=== PATIENT | male | born 1960 | race Caucasian/White ===

== ENCOUNTER 2018-04-23 12:14 | Emergency (ER) | payer MEDICAID, MEDICARE ==
--- NOTE | 2018-04-23 16:00 | RAD ---
HISTORY: injury, left arm pain and swelling COMPARISONS: July 07, 2015 VIEWS: 2, Frontal and lateral views of the left forearm. Evaluation is limited by positioning FINDINGS: BONE DENSITY: There is diffuse osteopenia. BONES: There is remote posttraumatic deformity of the distal fibula. The patient is status post internal fixation of the distal radius. There is no hardware failure or osteolysis. There is, with fracture of the distal humeral metaphysis is not well visualized on the current examination. JOINTS: There is no arthropathy. ALIGNMENT: There is no dislocation. SOFT TISSUES: Unremarkable. OTHER FINDINGS: None. IMPRESSION: 1. COMMINUTED FRACTURE OF THE DISTAL HUMERAL METAPHYSIS NOT WELL VISUALIZED ON THE CURRENT EXAMINATION. 2. OSTEOPENIA. 3. REMOTE POSTTRAUMATIC AND POST SURGICAL CHANGE OF THE WRIST
--- NOTE | 2018-04-23 16:01 | RAD ---
HISTORY: injury, left-sided pain and swelling COMPARISONS: July 22, 2015 VIEWS: 3, Frontal, lateral, and oblique views of the left wrist FINDINGS: BONE DENSITY: There is diffuse osteopenia. BONES: The patient is status post internal fixation of the distal radius. There is remote post right deformity of the distal ulna and first metacarpal. JOINTS: There is osteoarthritis of the radiocarpal articulation, first CMC, first MCP joints. ALIGNMENT: There is no dislocation. SOFT TISSUES: Unremarkable. OTHER FINDINGS: None. IMPRESSION: 1. OSTEOARTHRITIS. 2. OSTEOPENIA. 3. STATUS POST ORIF OF THE DISTAL RADIUS. 4. REMOTE POST RIGHT CHANGES. 5. NO ACUTE OSSEOUS INJURY. THE DEGREE OF OSTEOPENIA MAY MAKE A NONDISPLACED FRACTURE RADIOGRAPHICALLY OCCULT. IF SYMPTOMS PERSIST, RECOMMEND REPEAT IMAGING.
--- NOTE | 2018-04-23 16:02 | RAD ---
INDICATION: Left humerus injury. TECHNIQUE: 2 views of the left humerus were obtained. FINDINGS: The bones appear osteopenic. There is a transverse comminuted fracture of the distal humeral metaphysis through the supracondylar region. The fracture fragments are displaced and demonstrates anterior angulation relative to the proximal fragment. There is diffuse soft tissue swelling present. IMPRESSION: COMMINUTED DISPLACED ANGULATED SUPRACONDYLAR FRACTURE. X-RAYS OF THE ELBOW MAY BE HELPFUL IN FURTHER DEFINITION.
--- NOTE | 2018-04-23 16:17 | ED ---
Upper Extremity Pain - HPI Summary HPI Summary: This is nawaf Randall documenting for attending Darren Welsh MD. This patient is a 57 year old M presenting to ED with a chief complaint of L arm pain and swelling s/p fall on the morning of 04/19/18. Last night he noticed the increased swelling and decided to come to the ED. He has paralysis of that arm from a previous stroke and is currently concerned that it may be broken. The patient rates the pain 4-5/10 in severity. Symptoms aggravated by movement. Symptoms alleviated by nothing. Patient reports the pain is in his elbow and forearm. PSHx wrist fracture. - History of Current Complaint Chief Complaint: EDExtremityUpper Stated Complaint: LT ARM INJURY Time Seen by Provider: 04/23/18 15:36 Hx Obtained From: Patient Mechanism Of Injury: Fall From A Standing Position Onset/Duration: Started Days Ago - on 04/19/18, Still Present Timing: Constant, Lasting Days - on 04/19/18 Severity Initially: Mild - 2/10 Severity Currently: Mild - 2/10 Pain Location: Arm - left, Elbow - left, Forearm - left Aggravating Factor(s): Movement Alleviating Factor(s): Nothing - Allergies/Home Medications Allergies/Adverse Reactions: Allergies Allergy/AdvReac Type Severity Reaction Status Date / Time No Known Allergies Allergy Verified 04/23/18 12:33 PMH/Surg Hx/FS Hx/Imm Hx Cardiovascular History: Reports: Hx Hypertension - ON MEDS Denies: Other Cardiovascular Problems/Disorders Respiratory History: Denies: Other Respiratory Problems/Disorders GI History: Denies: Other GI Disorders Musculoskeletal History: Denies: Other Musculoskeletal History Sensory History: Reports: Hx Contacts or Glasses - GLASSES Denies: Hx Hearing Aid Opthamlomology History: Reports: Hx Contacts or Glasses - GLASSES Neurological History: Reports: Hx Headaches Psychiatric History: Reports: Hx Anxiety, 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 [place] [facility] [place] Anesthesia Reactions: No Infectious Disease History: No Infectious Disease History: Denies: Traveled Outside the [place] in Last 30 Days - Family History Known Family History: Positive: Hypertension - Social History Alcohol Use: Rare Substance Use Type: Reports: None Substance Use Comment - Amount & Last Used: HX OF ETOH ABUSE, SOBER NOW Smoking Status (MU): Former Smoker Amount Used/How Often: PACK A DAY Have You Smoked in the Last Year: No Review of Systems Negative: Fever Positive: Other - L arm pain and swelling, pain mostly on L elbow and L forearm ; has paralysis of L arm due to previous stroke All Other Systems Reviewed And Are Negative: Yes Physical Exam - Summary Physical Exam Summary: VITAL SIGNS: Reviewed. GENERAL: Patient is a well-developed and nourished MALE who is lying comfortable in the stretcher. Patient is not in any acute respiratory distress. HEAD AND FACE: No signs of trauma. No ecchymosis, hematomas or skull depressions. No sinus tenderness. EYES: PERRLA, EOMI x 2, No injected conjunctiva, no nystagmus. EARS: Hearing grossly intact. Ear canals and tympanic membranes are within normal limits. MOUTH: Oropharynx within normal limits. NECK: Supple, trachea is midline, no adenopathy, no JVD, no carotid bruit, no c- spine tenderness, neck with full ROM. CHEST: Symmetric, no tenderness at palpation LUNGS: Clear to auscultation bilaterally. No wheezing or crackles. CVS: Regular rate and rhythm, S1 and S2 present, no murmurs or gallops appreciated. ABDOMEN: Soft, non-tender. No signs of distention. No rebound no guarding, and no masses palpated. Bowel sounds are normal. EXTREMITIES: no edema, no cyanosis or clubbing. L upper extremity swelling. Decreased sensation in the L arm but chronic because of his past stroke. Decreased movement of the L arm secondary to stroke. Good capillary refill. NEURO: Alert and oriented x 3. No acute neurological deficits. Speech is normal and follows commands. SKIN: Dry and warm Triage Information Reviewed: Yes Vital Signs On Initial Exam: Initial Vitals Temp Pulse Resp BP Pulse Ox 97.9 F 88 18 165/100 95 04/23/18 12:20 04/23/18 12:20 04/23/18 12:20 04/23/18 12:20 04/23/18 12:20 Vital Signs Reviewed: Yes Diagnostics - Vital Signs Vital Signs Temp Pulse Resp BP Pulse Ox 04/23/18 14:03 98.1 F 82 18 166/100 100 04/23/18 12:20 97.9 F 88 18 165/100 95 - Laboratory Lab Statement: Any lab studies that have been ordered have been reviewed, and results considered in the medical decision making process. - Radiology Humerus XR Radiology Interpretation Completed By: Radiologist - COMMINUTED DISPLACED ANGULATED SUPRACONDYLAR FRACTURE. X-RAYS OF THE ELBOW MAY BE HELPFUL IN FURTHER DEFINITION. ED physician has reviewed this radiology report. L Wrist XR Radiology Interpretation Completed By: Radiologist - 1. OSTEOARTHRITIS. 2. OSTEOPENIA. 3. STATUS POST ORIF OF THE DISTAL RADIUS. 4. REMOTE POST RIGHT CHANGES. 5. NO ACUTE OSSEOUS INJURY. THE DEGREE OF OSTEOPENIA MAY MAKE A NONDISPLACED FRACTURE RADIOGRAPHICALLY OCCULT. IF SYMPTOMS PERSIST, RECOMMEND REPEAT IMAGING. ED physician has reviewed this radiology report. L forearm XR Radiology Interpretation Completed By: Radiologist - 1. COMMINUTED FRACTURE OF THE DISTAL HUMERAL METAPHYSIS NOT WELL VISUALIZED ON THE CURRENT EXAMINATION. 2. OSTEOPENIA. 3. REMOTE POSTTRAUMATIC AND POST SURGICAL CHANGE OF THE WRIST. ED physician has reviewed this radiology report. L elbow XR Radiology Interpretation Completed By: Radiologist - COMMINUTED, DISPLACED, ANGULATED SUPRACONDYLAR FRACTURE. ED physician has reviewed this radiology report. Re-Evaluation - Re-Evaluation First Eval Re-Evaluation Time: 17:37 Comment: Placed a splint on the patient. Discussed discharge plan and follow up instructions. Course/Dx - Course Assessment/Plan: Patient is a 49-year-old male with past medical history significant for CVA with left-sided weakness, hypertension and depression. He presents today to the emergency department with a chief complaint of having left elbow pain and swelling. He reports that last he accidentally tripped and fell and since then the patient is having pain. X-ray of the left forearm impression: Comminuted fracture of the distal humerus. Osteopenia, remote pulse of traumatic and postsurgical change of the wrist. X-ray of the left wrist impression: Question arthritis, osteopenia, status post ORIF of the distal radius. No acute osseous injury. Humerus x-ray impression: Comminuted displaced angulated supracondylar fracture. X-ray of the left elbow impression : Comminuted, displaced, angulated supracondylar fracture. I discussed the findings and test results with Dr. Norman from orthopedics and she recommends for the patient to be placed in a long posterior splint and discharged home with a follow-up with her office tomorrow. I discussed the findings test results and plan with the patient and they agree. The patient has no further questions and no other concerns. Patient as he remembered the stable alert and oriented 3. - Diagnoses Differential Diagnosis/HQI/PQRI: Positive: Other - SUPRACONDYLAR FRACTURE Provider Diagnoses: Supracondylar fracture of humerus - Physician Notifications Discussed Care of Patient With: Shavon Norman Time Discussed With Above Provider: 17:32 Instructed by Provider To: Other - Consulted Dr. Norman who says to put a long splint on the patient, discharge him, and give him instructions to follow up with her in the office tomorrow. Discharge - Sign-Out/Discharge Documenting (check all that apply): Patient Departure - Discharge Plan Condition: Stable Disposition: HOME Prescriptions: HYDROcodone/ACETAMIN 5-325 MG* [Two Dot 5-325 TAB*] 1 tab PO Q6H PRN #10 tab MDD 4 PRN Reason: Pain Patient Education Materials: Splint Care (ED) Referrals: Shavon Norman MD [Medical Doctor] - (Follow up with Dr. Norman tomorrow.) Additional Instructions: RETURN TO ED FOR ANY WORSENING OR NEW SYMPTOMS. FOLLOW UP WITH YOUR PRIMARY CARE PROVIDER WITHIN ONE WEEK FOR HIGH BLOOD PRESSURE NOTED TODAY.
--- NOTE | 2018-04-23 16:56 | RAD ---
INDICATION: Left elbow pain. TECHNIQUE: 5 views of the left elbow were obtained. FINDINGS: There is diffuse soft tissue swelling. The bones appear osteopenic. There is a comminuted impacted fracture of the distal humeral metaphysis in the supracondylar region. There is anterior angulation of the distal fragments relative to the proximal fragment. IMPRESSION: COMMINUTED, DISPLACED, ANGULATED SUPRACONDYLAR FRACTURE.
[2018-04-23] MEDS ORDERED: HYDROcodone/ACETAMIN 5-325 MG* 1 TAB PO ONE (17:50)
[2018-04-23 18:01] VITALS: BP 165/119
== END 2018-04-23 18:00 | disposition home or self-care (01) ==
LOC: ED 12:14
DX: S42.422A Displaced comminuted supracondylar fracture without intercondylar fracture of left humerus, initial encounter for closed fracture (principal); I69.354 Hemiplegia and hemiparesis following cerebral infarction affecting left non-dominant side; W19.XXXA Unspecified fall, initial encounter; Y92.9 Unspecified place or not applicable; I10 Essential (primary) hypertension; Z87.891 Personal history of nicotine dependence; M19.032 Primary osteoarthritis, left wrist; M85.832 Other specified disorders of bone density and structure, left forearm
CPT/HCPCS: 29125; 99282

== ENCOUNTER 2019-09-30 09:49 | Emergency (ER) | payer SELFPAY ==
--- NOTE | 2019-09-30 09:55 | ED ---
Complex/Multi-Sys Presentation - HPI Summary HPI Summary: Patient is a 59 y/o M presenting to the ED via EMS for a chief complaint of left arm pain after a fall on 09/30/19. Per EMS, patient was at his place of employment, [employer], when he fell on his left arm and the back of his head. After the fall, patient had lightheadedness. On arrival to [facility], patient reported neck stiffness and headache. He describes his headache as a burning sensation in the back of the head. EMS placed a brace on the left forearm as a left arm fracture was suspected. Patient has a PMHx of CVA 10 years ago with residual left-sided weakness that the patient believes was the reason for the fall. Since the CVA, the patient has had decreased ROM of the left arm. Patient denies having a loss of consciousness after the fall. PMHx is also significant for back fracture several years ago. He denies taking any medications or using tobacco, but admits occasional alcohol and marijuana use. Medications reviewed. Allergies noted. - History Of Current Complaint Hx Obtained From: Patient, EMS Onset/Duration: Sudden Onset, Still Present Timing: Constant Severity Currently: Moderate Severity Initially: Moderate Location: Pain At: - Left arm Character: Typical Headache - Burning sensation Associated Signs And Symptoms: Positive: Weakness - Residual left-sided, Headache. Negative: Syncope - Allergies/Home Medications Allergies/Adverse Reactions: Allergies Allergy/AdvReac Type Severity Reaction Status Date / Time No Known Allergies Allergy Verified 09/30/19 10:00 Home Medications: Home Medications Aspirin EC TAB* [Ecotrin EC Low Dose 81 MG*] 81 mg PO DAILY 09/30/19 [History Confirmed 09/30/19] Milk Thistle 150 mg PO DAILY 09/30/19 [History Confirmed 09/30/19] Naproxen Sodium [Aleve] 220 mg PO DAILY 09/30/19 [History Confirmed 09/30/19] diphenhydrAMINE HCl [Allergy Medication] 25 mg PO DAILY PRN 09/30/19 [History Confirmed 09/30/19] PMH/Surg Hx/FS Hx/Imm Hx Previously Healthy: Yes Endocrine/Hematology History: Denies: Hx Diabetes Cardiovascular History: Reports: Hx Hypertension - ON MEDS Denies: Hx Hypercholesterolemia, Other Cardiovascular Problems/Disorders Respiratory History: Denies: Other Respiratory Problems/Disorders GI History: Denies: Other GI Disorders Musculoskeletal History: Denies: Other Musculoskeletal History Sensory History: Reports: Hx Contacts or Glasses - GLASSES Denies: Hx Legally Blind, Hx Deafness, Hx Hearing Aid Opthamlomology History: Reports: Hx Contacts or Glasses - GLASSES Denies: Hx Legally Blind EENT History: Denies: Hx Deafness Neurological History: Reports: Hx CVA, Hx Headaches Psychiatric History: Reports: Hx Anxiety, 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 TESTICULAR CYST, 2009, [facility] Hx Anesthesia Reactions: No Infectious Disease History: No - Family History Known Family History: Positive: Hypertension - Social History Occupation: Employed Full-time Lives: With Family Alcohol Use: Rare Hx Substance Use: No Substance Use Type: Reports: None Substance Use Comment - Amount & Last Used: HX OF ETOH ABUSE, SOBER NOW Hx Tobacco Use: Yes Smoking Status (MU): Former Smoker Amount Used/How Often: PACK A DAY Have You Smoked in the Last Year: No Review of Systems Positive: Myalgia - Left arm, Decreased ROM - Left arm, Other - Positive neck stiffness Neurological: Other - Positive lightheadedness Positive: Headache, Weakness - Residual left-sided. Negative: Syncope All Other Systems Reviewed And Are Negative: Yes Physical Exam - Summary Physical Exam Summary: Constitutional: Well-developed, Well-nourished, Alert. (-) Distressed Skin: Warm, Dry HENT: Normocephalic; Atraumatic Eyes: Conjunctiva normal Neck: Musculoskeletal ROM normal neck. (-) JVD, (-) Stridor, (-) Tracheal deviation Cardio: Rhythm regular, rate normal, Heart sounds normal; Intact distal pulses; Radial pulses are 2+ and symmetric. (-) Murmur Pulmonary/Chest wall: Effort normal. (-) Respiratory distress, (-) Wheezes, (-) Rales Abd: Soft, (-) tenderness, (-) Distension, (-) Guarding, (-) Rebound Musculoskeletal: Left wrist swelling, proximal MCP joint of the left finger swelling, right trapezius tenderness, no midline tenderness. Lymph: (-) Cervical adenopathy Neuro: Alert, Oriented x3 Psych: Mood and affect Normal Triage Information Reviewed: Yes Vital Signs Reviewed: Yes - Dionicio Coma Scale Best Eye Response: 4 - Spontaneous Best Motor Response: 6 - Obeys Commands Best Verbal Response: 5 - Oriented Coma Scale Total: 15 Procedures - Sedation Patient Received Moderate/Deep Sedation with Procedure: No Diagnostics - Laboratory Lab Statement: Any lab studies that have been ordered have been reviewed, and results considered in the medical decision making process. - Radiology Wrist X-ray Radiology Interpretation Completed By: Radiologist Summary of Radiographic Findings: Wrist X-ray IMPRESSION: 1. Exam limited by severe osteopenia. An equivocal intra-articular nonspecific lucency is seen about the distal radius. This could be better evaluated by CT. 2. Status post ORIF of distal radius. Reviewed by Dr. Conner. Hand X-ray Radiology Interpretation Completed By: Radiologist Summary of Radiographic Findings: Hand X-ray IMPRESSION: 1. Exam limited by severe osteopenia. An equivocal intra-articular nonspecific lucency is seen about the distal radius. This could be better evaluated by CT. 2. Status post ORIF of distal radius. Reviewed by Dr. Conner. - CT Brain CT CT Interpretation Completed By: Radiologist Summary of CT Findings: Brain CT IMPRESSION: NO ACUTE INTRACRANIAL PATHOLOGY. 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 Reviewed by Dr. Conner. Complex Multi-Symp Course/Dx Course Of Treatment: Patient is here after mechanical fall similar to prior stroke. Patient had an x-ray which showed possible distal radius fracture the patient was not very tender at the spot. Patient was placed in an wrist splint and given orthopedic surgery follow-up. - Diagnoses Provider Diagnoses: Left wrist injury, Fall Discharge ED - Sign-Out/Discharge Documenting (check all that apply): Patient Departure - Discharge - Discharge Plan Condition: Stable Disposition: HOME Patient Education Materials: Wrist Injury (ED) Referrals: Darren Cote MD [Primary Care Provider] - Beth Ramires MD [Medical Doctor] - Additional Instructions: PLEASE RETURN TO EMERGENCY DEPARTMENT FOR ANY NEW OR WORSENING SYMPTOMS. Please follow up with your primary care physician. Please make all follow-ups in 1-3 days unless I advise you otherwise. Wear your splint for comfort. Take ibuprofen as needed for pain. Call Dr. Ramires if you continue to have pain in your wrist. - Billing Disposition and Condition Condition: STABLE Disposition: Home - Attestation Statements Document Initiated by Scribe: Yes Documenting Scribe: Anahi Amquy Provider For Whom Scribe is Documenting (Include Credential): Prabhu Conner MD Scribe Attestation: I, Anahi Mancilla, scribed for Prabhu Conner MD on 09/30/19 at 1903. Scribe Documentation Reviewed: Yes Provider Attestation: The documentation as recorded by the yamelibcarmen, Anahi Mancilla accurately reflects the service I personally performed and the decisions made by me, Prabhu Conner MD Status of Scribe Document: Viewed
[2019-09-30 12:49] VITALS: BP 145/80
== END 2019-09-30 12:46 | disposition home or self-care (01) ==
LOC: ED 09:49
DX: S69.92XA Unspecified injury of left wrist, hand and finger(s), initial encounter (principal); W18.30XA Fall on same level, unspecified, initial encounter; Y92.89 Other specified places as the place of occurrence of the external cause; Y99.0 Civilian activity done for income or pay; I10 Essential (primary) hypertension; I69.954 Hemiplegia and hemiparesis following unspecified cerebrovascular disease affecting left non-dominant side; F41.9 Anxiety disorder, unspecified; F32.9 Major depressive disorder, single episode, unspecified; F43.10 Post-traumatic stress disorder, unspecified; Z79.82 Long term (current) use of aspirin; Z79.899 Other long term (current) drug therapy; Z87.891 Personal history of nicotine dependence
CPT/HCPCS: 70450; 99282